=== PATIENT | male | born 1975 | race Caucasian/White ===

== ENCOUNTER 2018-08-31 22:39 | Inpatient (IN) | payer OTHER ==
[~2018-08-31] VITALS: Ht 162.6 cm; Wt 80.3 kg
[2018-08-31 22:58] VITALS: BP 120/80
--- NOTE | 2018-09-01 00:40 | NUR ---
PT TRANSFER FROM [facility].ARRIVED TO UNIT VIA AMBULANCE ACCOMPANIED BY THE SPOUSE.UPON ARRIVAL PT STABLE IN NO ACUTE DISTRESS.CHEST TUBE TO LEFT LATERAL CHEST IN PLACE.HOOKED UPTO TO -20CM SUCTION,DD BLOOD LIKE DRAINAGE.SOME AIR LEAK NOTED.REINFORCED THE DRESSING BUT AIRLEAK STILL PRESENT.PER REPORT FROM [place] THE AIRLEAK WAS PRESENT AND THAT IS THE REASON WHY PT IS GOING TO BE ADMITTED HERE FOR EVALUATION WITH POSSIBLE THORACTOMY WITH DECORTICATION TOMORROW WITH DR RODRIGUEZ.PT ON RA,W/O RESP DISTRESS.ORDERS NOTED.MANAGER BEHAVIORAL NOTIFIED,ROUNDED ON PTS.PAIN MEDS GIVEN PER ORDERS.PT ORIENTED TO RM AND UNIT ACTIVITIES.POC REVIEWED.PT INAGREEMENT WITH POC.PT DENIES ANY CONCERNS AT THIS TIME.WILL CONT TO MONITOR PER POC.PT TO BE NPO.
[2018-09-01 04:00] VITALS: BP 113/79
[2018-09-01 04:23] VITALS: BP 121/78
[2018-09-01 05:18] LABS: HEMATOCRIT 27.5 % (42.0-52.0); HEMOGLOBIN 9.1 gm/dL (14.0-18.0); MCH 27.8 pg (26.0-34.0); MCHC 33.2 g/dL (28.0-37.0); MCV 83.8 fL (80.0-100.0); RBC 3.28 mil/uL (4.50-6.00); RDW 14.5 % (10.5-14.5)
[2018-09-01 05:30] LABS: CALCIUM 9.1 mg/dL (8.5-10.1); CREATININE 0.9 mg/dL (0.7-1.3); MAGNESIUM 2.3 mg/dL (1.8-2.4); POTASSIUM 4.8 mmol/L (3.5-5.1)
[2018-09-01 09:27] LABS: PROTIME 10.1 Seconds (9.3-11.4)
--- NOTE | 2018-09-01 14:32 | NUR ---
ASSUMED CARE AT 0700, SHIFT ASSESSMENT DONE, PATENT HAS BEEN NPO SINCE LAST NIGHT. CHEST TUBE SITE CLEAN, DRY, INTACT. REPORTED PAIN, PRN PAIN MED GIVEN. WAS PICKED UP FOR OR AT 1130, NSR ON TELE. WILL CONTINUE TO ASSIST WITH TRANSFER NEEDED.
--- NOTE | 2018-09-01 14:43 | H ---
[facility] [place] [address] HISTORY AND PHYSICAL Name: ILDA NEGRETE Room #: 210-P ADM IN M.R.#: [id number] Admission: 08/31/18 ������������������ Attend Phys: Efren Mendoza Discharge: ������������������ Date of : 71 Report #: [id number] THIS REPORT FOR: //name// CC: FAM physician/PCP Jacob Phan DATE OF SERVICE: 08/31/2018 ATTENDING PHYSICIAN: Dr. Phan. PRIMARY CARE PHYSICIAN: None. CHIEF COMPLAINT: Empyema. HISTORY OF PRESENT ILLNESS: The patient is a 43-year-old male who was initially admitted at [facility] on 08/21/2018 for shortness of breath and cough. He was febrile with a temperature of 103 with white blood cell count of 21.2 and 15% bands. Chest x-ray showed moderate left effusion with possible loculation. He did meet sepsis and was started on vancomycin and Zosyn. He also had mild acute kidney injury with a creatinine of 1.4. His lactate was 3.4. Over the course of the last week and a half, he has had a chest tube placed for the loculated effusion on 08/22/2018 and subsequently had a left VAT with drainage of multiloculated empyema with lysis of pleural adhesions and drainage of a large clot hemothorax. He had a second chest tube placed with surgery, that chest tube was removed earlier today. He had a followup CT of the chest done on 08/29/2018, which shows [address] with drainage of much of the left apical fluid. There is small residual pleural gas and fluid collections with associated pleural thickening. There is moderate ongoing atelectasis and infiltrate in the left lower lobe and there is much unchanged mediastinal lymphadenopathy. He has been followed by cardiothoracic surgery with Dr. Rios who requested that he be transferred to [facility] for another left thoracotomy with possible decortication in the morning. He arrived in stable condition. His main complaint is left-sided chest pain. This has been pleuritic pain since he had been admitted at [facility]. He has been on multiple pain medications including morphine, fentanyl, Toradol, oxycodone and Percocet. Pain is worse with any movement, cough or deep breathing. He currently rates his pain at 8/10. He did receive some pain medications prior to transfer. His culture from the empyema did grow beta-hemolytic Strep group A. He had been followed by infectious disease and his antibiotics were switched to Rocephin 2 g daily. His blood cultures have been negative. He had originally been treated for pneumonia at the end of June 2018 and had been discharged on oral antibiotics, which he says he had to complete it. He is normally healthy and does not have any underlying medical problems other than osteoarthritis. PAST MEDICAL HISTORY: Osteoarthritis. [facility] [address] [place] [address] HISTORY AND PHYSICAL Name: ILDA NEGRETE Room #: 210-P ADM IN M.R.#: [id number] Admission: 08/31/18 ������������������ Attend Phys: Efren Mendoza Discharge: ������������������ Date of : 71 Report #: [id number] PAST SURGICAL HISTORY: Recent left video-assisted thoracoscopy with drainage of multiloculated empyema and lysis of pleural adhesions and drainage of large hemothorax. MEDICATIONS: Home medications are none. The medications that he had been on at [facility] were reviewed. ALLERGIES: None. SOCIAL HISTORY: The patient is a smoker, smoking 1 pack per day since he was a teenager. Denies any current alcohol use, but did use to drink heavily at least 3-4 times per week. He denies any current drug use, but did use cocaine and marijuana in the past. He has not used anything for 14 years. 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 FAMILY HISTORY: Significant for diabetes and hypertension. REVIEW OF SYSTEMS: Twelve-point review of systems was reviewed with the patient, otherwise negative unless stated in the HPI. PHYSICAL EXAMINATION: GENERAL: The patient is an alert male, in no acute distress. VITAL SIGNS: Temperature 37.1, heart rate 110, respirations 17, blood pressure 120/80, oxygen 96% on room air. HEENT: PERRLA. Sclerae are nonicteric. Oral mucosa is pink and moist. NECK: Supple, no JVD noted. CARDIOVASCULAR: He is tachycardic, but no murmurs, rubs or gallops. RESPIRATORY: Breath sounds are clear in bilateral upper lobes. He is diminished in the left lower lobe. There is a left-sided chest tube in place draining some sanguineous fluid. The chest tube site is clean, dry and intact. ABDOMEN: Soft, nontender, nondistended with positive bowel sounds. VASCULAR: There is 1+ bilateral lower extremity edema. Pedal pulses are 2+. NEUROLOGIC: The patient is alert and oriented x 3. Speech is clear. He is moving all extremities equally. No focal neuro deficits noted. LABORATORY DATA AND DIAGNOSTICS: Blood work done earlier today at [facility] showed a WBC of 14.1, hemoglobin 8.8 and platelets 414. Sodium 133, potassium 4.5, BUN 12, creatinine 0.9, glucose [address] of the chest on 08/29/2018 as above. ASSESSMENT AND PLAN: 1. Left empyema. The patient is sent by Dr. Rios for repeat left-sided thoracotomy with possible decortication. This is scheduled for tomorrow morning. We will keep him n.p.o. after midnight. Continue with pain control. Continue Rocephin daily based on prior cultures. 2. Nicotine, tobacco abuse. The patient has been advised to quit. He did [facility] [address] [place] [address] HISTORY AND PHYSICAL Name: SHAIJAGDISHBLANKAILDA Room #: 210-P [facility] IN M.R.#: [id number] Admission: 08/31/18 ������������������ Attend Phys: Efren Mendoza Discharge: ������������������ Date of : 71 Report #: [id number] agree to a nicotine patch. 3. Recent anemia. This is likely due to acute blood loss from the hemothorax and postoperatively, he did receive a unit of blood and hemoglobin has been stable. Follow labs. 4. Deep venous thrombosis prophylaxis. Heparin has been on hold for surgery. Place on SCDs and resume heparin when okay with surgery. We will continue to follow the patient closely throughout the hospitalization and make changes based on clinical status. ��������������������������������������������� <ELECTRONICALLY SIGNED> ���������������������������������������� By: HUMBERTO Chow ��������������������������������������������� 09/01/18 1443 0147 0225 HUMBERTO Chow /nt
--- NOTE | 2018-09-01 16:13 | NUR ---
Chart reviewed and case discussed with the care team. Unable to met with pt this afternoon due to surgery and transfer to the ICU after. Pt had a thoracotomy. Will follow along should the pt have dc planning needs. He does not have health insurance coverage and a [employer] referral was initiated. He was indep and working prior to admission and lives with his and children. He was transfered from [facility] for CTS. Pt will likely need a abdoul application and medication assistance at pr.
--- NOTE | 2018-09-01 20:02 | NUR ---
1800 - PT ADMITTED TO 244 FROM RECOVERY ROOM /C NURSE AT BEDSIDE - MONITORS APPLIED - ART LINE ZEROED - CHEST TUBES PLACED TO SUCTION - CERTIFIED TRAVEL COUNSELOR PUMP ATTACHED AND PT EDUCATED ON HOW TO USE - VSS - ALBA IN PLACE AND DRAINING - DRESSING AND DAVID PUMP INTACT - BROUGHT TO BEDSIDE TO SEE PT AND INSTRUCTIONS INCLUDING ICU RULES AND CODE GIVEN - QUESTIONS RELATED TO ANSWERED - PT STATES THANK YOU FOR PATIENCE AND ANSWERING QUESTIONS - REPORT GIVEN TO JORDY FONG
[2018-09-01 22:58] VITALS: BP 130/96
[2018-09-01 23:58] VITALS: BP 128/92
[2018-09-02] VITALS (23 sets, daily range): BP systolic 112–151; BP diastolic 65–115
[2018-09-02 05:41] LABS: HEMATOCRIT 26.9 % (42.0-52.0); HEMOGLOBIN 8.8 gm/dL (14.0-18.0); MCH 27.6 pg (26.0-34.0); MCHC 32.8 g/dL (28.0-37.0); MCV 83.9 fL (80.0-100.0); RBC 3.2 mil/uL (4.50-6.00); RDW 14.1 % (10.5-14.5); WBC 17.4 thou/uL (4.0-11.0)
[2018-09-02 06:06] LABS: CALCIUM 8.7 mg/dL (8.5-10.1); CREATININE 0.9 mg/dL (0.7-1.3); PHOSPHORUS 4.2 mg/dL (2.5-4.9); POTASSIUM 4.7 mmol/L (3.5-5.1); TOTAL BILIRUBIN 0.2 mg/dL (<0.1-1.0); TOTAL PROTEIN 8.5 g/dL (6.4-8.2)
--- NOTE | 2018-09-02 08:31 | NUR ---
AOX4. ON 2L NC. NO APPARENT DISTRESS AT REST. VSS. AFEBRILE. [address], OUTPUT NOTED. AIR LEAKS IN BOTH CHAMBERS. MEDICATED FOR PAIN RELIEF. ADEQUATE URINE OUTPUT. NO COMPLAINS PRESENTLY. WILL CONTINUE TO MONITOR.
--- NOTE | 2018-09-02 18:34 | NUR ---
ASSUMED CARE @ 0700 09/02/18, PT ASSESSMENTS AND VSS COMPLETE PER ICU PROTOCOL. PT ALERT AND ORIENTED X 4, PT ABLE TO FOLLOW ALL COMMANDS, MORTGAGE MANAGER MANAGMENT IN PLACE FOR PAIN. PT ST ON THE MONITOR, PT AFEBRILE, ART LINE DC'D PER ORDERS. . PT INITIALY ON 2L OF 02 NOW ON RA, SATS IN THE HIGH 90'S, INCREASED RR WITH PAIN. PT ON A REGULAR DIET, PT TOLERATING PO VERY WELL. ALBA DC'D TODAY. FAMILY AT BED SIDE DURING SHIFT FOR SUPPORT. PLAN OF CARE- CONTINUE TO MANAGE PAIN.
[2018-09-03] VITALS (18 sets, daily range): BP systolic 105–130; BP diastolic 69–90
[2018-09-03 05:48] LABS: HEMATOCRIT 24.2 % (42.0-52.0); HEMOGLOBIN 8.1 gm/dL (14.0-18.0); MCH 28.2 pg (26.0-34.0); MCHC 33.6 g/dL (28.0-37.0); MCV 84.2 fL (80.0-100.0); RBC 2.88 mil/uL (4.50-6.00); RDW 14.5 % (10.5-14.5); WBC 11.6 thou/uL (4.0-11.0)
[2018-09-03 05:58] LABS: CALCIUM 8.4 mg/dL (8.5-10.1); CREATININE 0.9 mg/dL (0.7-1.3); POTASSIUM 4.1 mmol/L (3.5-5.1)
--- NOTE | 2018-09-03 07:00 | NUR ---
No event last night. Pt remains stable in this shift. No changes of cardiac rhythm. BP and Temp are WNL. Pain level is better control per his report. Continue Dilaudid PERMIT REVIEW ASSISTANT for pain control. No s/sx of any complication indicates. Pulmonary toilet in progress. CTs remain inplace. No airleak on CTs#1. Small airleaked present on CTs#2. Drainage is slowing down. Report hand off to on coming RN.
--- NOTE | 2018-09-03 18:15 | NUR ---
ASSUMED CARE @ 0700 09/02/18, PT ASSESSMENTS AND VSS COMPLETE PER ICU PROTOCOL. PT ALERT AND ORIENTED X 4. PT ABLE TO FOLLOW ALL COMMANDS, DELIVERER MERCHANDISE PUMP IN PLACE . PT AFEBRILE, TACHY ON THE MONITOR. CHEST TUBES X4 STILL IN PLACE. PT ON RA SATS FINE. PT ON A REGULAR DIET, ABLE TO TOLERATE MEALS. PT ABLE TO USE URINAL APPROPRIATELY. PT DOWNDRADED TO CCU, REPORT GIVEN TO TG SPENCE, PT TRANSPORTED TO CCU IN A WHEELCHAIR WITHOUT COMPLICATIONS.
--- NOTE | 2018-09-03 18:43 | NUR ---
ASSUMED CARE OF PATIENT AT 1700 TRANSFER FROM ICU. OIL TANKER CAPTAIN PUMP VERIFIED WITH ICU NURSE. PATIENT HAS 4 CHEST TUBES PRESENT IN HIS LEFT CHEST. PATIENT IS QUITE SORE FROM THE MOVE FROM ICU AT HIS LEFT FLANK AND RESTING IN BED. ASSESSMENT COMPLETED. OIL TANKER CAPTAIN PUMP SET UP. FAMILY AND CHILDREN ARE AT THE BEDSIDE. WILL CONTINUE TO MONITOR.
[2018-09-03 21:05] LABS: HIV ANTIBODY Non Reactive (Non Reactive)
[2018-09-04 00:45] VITALS: BP 124/73
--- NOTE | 2018-09-04 03:37 | NUR ---
ASSESSMENT CHARTED. VSS. PT C/O LEFT FLANK PAIN COPY HOLDER AND PRN PAIN MEDS PER EMAR. CHEST TUBES IN PLACE. PT STEADY TO BEDSIDE COMMOD. PT DENIES N/V, DIZZINESS, SOA. PT HOPEFUL TO WORK WITH PT THIS AM. WILL CONTINUE TO MONITOR AND WITH POC.
[2018-09-04 04:28] LABS: HEMATOCRIT 25.3 % (42.0-52.0); HEMOGLOBIN 8.5 gm/dL (14.0-18.0); MCH 28.2 pg (26.0-34.0); MCHC 33.6 g/dL (28.0-37.0); RBC 3.01 mil/uL (4.50-6.00); RDW 14.8 % (10.5-14.5)
[2018-09-04 04:35] LABS: CALCIUM 8.5 mg/dL (8.5-10.1); CREATININE 0.8 mg/dL (0.7-1.3); POTASSIUM 4.1 mmol/L (3.5-5.1)
[2018-09-04 05:36] VITALS: BP 126/90
[2018-09-04 07:12] VITALS: BP 128/89
--- NOTE | 2018-09-04 09:43 | HC ---
[facility] [place] [address] CONSULTATION Name: ILDA NEGRETE Room #: 203-P ADM IN M.R.#: [id number] Admission: 08/31/18 ������������������ Attend Phys: Efren Mendoza Discharge: ������������������ Date of : 71 Report #: [id number] THIS REPORT FOR: //name// CC: FAM physician/PCP Efren Mendoza DATE OF SERVICE: 09/01/2018 INFECTIOUS DISEASE CONSULTATION ATTENDING PHYSICIAN: Dr. Phan. CONSULTATION REQUESTED BY: Dr. Mendoza. REASON FOR CONSULTATION: Left empyema. HISTORY OF PRESENT ILLNESS: A 43-year-old Lebanese man, initially admitted at [facility], diagnosed to have left-sided empyema due to group A Streptococcus. He had a chest tube and transferred to [place] for decortication. Diagnosed to have pneumonia in 06/2018, discharged after 2 days of treatment with recurrence or reinfection later on resulting in severe sepsis, requiring treatment with Zosyn and vancomycin, later on changed to Rocephin. PAST MEDICAL HISTORY: Essentially noncontributory besides episode of pneumonia and empyema. DRUG ALLERGIES: None listed. 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 Smokes cigarettes. MEDICATIONS: He is currently on Rocephin 2 g IV daily, enoxaparin 40 mg at bedtime, subcutaneous docusate, lactobacillus acidophilus, nicotine patch, morphine sulfate p.r.n., oxycodone p.r.n., ketorolac p.r.n., acetaminophen p.r.n., fentanyl p.r.n. REVIEW OF SYSTEMS: Left-sided chest pain, admitted to [place] for decortication today. PHYSICAL EXAMINATION: GENERAL: A well-developed, nontoxic looking man. VITAL SIGNS: Temperature 98.8, pulse 112, respirations 17, BP 121/78. Height 5 feet 4 inches. Weight 184/175, we have 2 choices, one is in bed and another one on standing at bedside scale. HEENMT: Within range. NECK: Supple. LUNGS: Few rhonchi, left base. Left-sided chest tube. [facility] [address] [place] [address] CONSULTATION Name: ILDA NEGRETE Room #: 203-P ADM IN M.R.#: [id number] Admission: 08/31/18 ������������������ Attend Phys: Efren Mendoza Discharge: ������������������ Date of : 71 Report #: [id number] HEART: S1, S2. No gallop. ABDOMEN: Soft, no masses or megaly. GENITALIA AND RECTAL: Deferred. EXTREMITIES: No clubbing or cyanosis. NEUROLOGIC: Grossly within normal limits. LABORATORY DATA: Sodium 136, potassium , BUN 12, creatinine 0.9. WBC 14,000, hemoglobin 9.1, platelets 540,000. Laboratory data at [facility] revealed CT scan with large left chest tube, a small residual left pleural gas and fluid collection with pleural thickening. Cultures revealed group A Streptococcus. ASSESSMENT: 1. Left-sided empyema due to group A Streptococcus. 2. Anemia. SUGGESTIONS: Recommend to proceed with decortication. Continue Rocephin, excellent choice for group A Streptococcus. Obtain HIV serology. Dr. Mendoza, thank you for requesting my suggestions. ��������������������������������������������� <ELECTRONICALLY SIGNED> ���������������������������������������� By: David Thomas MD ��������������������������������������������� 09/04/18 0943 1026 06 David Thomas MD /nt
[2018-09-04 11:51] VITALS: BP 126/84
[2018-09-04 20:30] VITALS: BP 116/74
[2018-09-05 04:54] VITALS: BP 103/40
--- NOTE | 2018-09-05 05:09 | NUR ---
A/O X 4.PAIN PARTIALLY CONTROLLED.MONITOR SHOWS SINUS TACHYCARDIA.VOIDS ADEQUATELY.ENCOURAGED TO USE INCENTIVE SPIROMETER AND IS PULLING 750.CHEST TUBE INTACT AND ON WATER SEAL.WILL MONITOR AND CONTINUE POC.
[2018-09-05 07:58] VITALS: BP 126/82
[2018-09-05 11:33] VITALS: BP 111/73
--- NOTE | 2018-09-05 12:45 | NUR ---
ASSUMED CARE AT SHIFT CHANGE, ALERT AND ORIENTED X4. ST AND VSS. CT X2 TO LT SIDE CHEST INPLACE, AND DRAINING SMALL AMOUNT S&S DRAINAGE. PAIN UNDER CONTROL WITH PAIN MEDS, AND PATIENT IS VERBALIZED PAIN MANAGEMNET REGIMEN. PROGRESSING TOWARDS GOALS AND WILL CONTINUE WITH POC.
--- NOTE | 2018-09-05 15:12 | NUR ---
FAXED FACE SHEET TO [employer] TO HELP WITH MEDICAID APPLICATION.
--- NOTE | 2018-09-05 15:47 | O ---
[facility] [place] [address] [place] [address] OPERATIVE REPORT Name: SHAI ILDA CARUSO Room #: 203-P ADM IN M.R.#: [id number] Admission: 08/31/18 ������������������ Attend Phys: Efren Mendoza Discharge: ������������������ Date of : 71 Report #: [id number] THIS REPORT FOR: //name// CC: NANCI physician/PCP Efren Mendoza ____ ____ DATE OF SERVICE: 09/01/2018 PREOPERATIVE DIAGNOSIS: Empyema, left chest. POSTOPERATIVE DIAGNOSIS: Empyema, left chest. PROCEDURE: Bronchoscopy, left thoracotomy with decortication. SURGEON: Michael Rios M.D. PACK ROOM OPERATOR: GAGANDEEP Trotter. ANESTHESIA: General. INDICATIONS: The patient is a 43-year-old transferred over from [facility] approximately [address] Bryant had performed a video-assisted thoracoscopy for empyema and Dr. Bryant found a combination of blood and pleural collection blood, possibly related to TPA administration and the pleural collection as a parapneumonic empyema. In the postoperative period, the patient had persistent air leak. He also had what appeared to be persistently rind on the CT scan and after we removed one chest tube, there was persistent air leak. It was uncomfortable with leaving the patient in that situation and thought that if we could do a thoracotomy and alleviate any constricting pleural process that it would ultimately maximize the patient's vital capacity and also improves his response to the infection. FINDINGS AND TECHNIQUE: After general anesthesia was established, flexible diagnostic bronchoscopy was performed. No specific endobronchial lesions were noted. There were some thick white secretions from the left lower lobe, but no endobronchial process. A double lumen endotracheal tube was placed and its position was ascertained under bronchoscopic guidance. The patient was positioned with left side up. Exposure was obtained through a left posterolateral thoracotomy. Chest was entered through an available interspace. We found less pleural process than expected and found much more pulmonary involvement and anticipated to take in particular, beneath the visceral pleura. [facility] [place] [address] [place] [address] OPERATIVE REPORT Name: ILDA SPEARS Room #: 203-P ADM IN M.R.#: [id number] Admission: 08/31/18 ������������������ Attend Phys: Efren Mendoza Discharge: ������������������ Date of : 71 Report #: [id number] The left lower lobe appeared very hemorrhagic. The left lower lobe was plastered to the diaphragm, but there was not much of a subpulmonic process. There were some areas of loculated pus that were likely to be small abscesses, one up at the apex of the chest and one in the fissure and these were opened and drained. The rest of the lung was decorticated to the best of our ability, but it must be said that there was not much pleural process to be seen apart from the intense inflammation and underlying hemorrhagic necrosis of some of the lungs. When I felt that we had dissected all areas of the lung and the chest was irrigated with copious amounts of warm saline and then, 4 chest tubes were placed to drain the anterior, lateral, posterior, and inferior pleural surfaces. The chest was then closed in the usual fashion. The patient was taken to the recovery area in good condition having tolerated the procedure well. All counts reported as correct. ��������������������������������������������� <ELECTRONICALLY SIGNED> ���������������������������������������� By: Michael Rios MD ��������������������������������������������� 09/05/18 1547 0837 1041 Michael Rios MD /nt
[2018-09-05 16:25] VITALS: BP 105/65
--- NOTE | 2018-09-05 18:11 | NUR ---
ASSUMED CARE AT SHIFT CHANGE, ALERT AND ORIENTED X4. ST ON THE MONITOR, VSS AND FEBRILE, LT SIDE/CT INSERTION SITE PAIN PATIENT REPORTED , AND MEDICATED INDICATED. PATIENT UP WALKING X3 TODAY AND TOLERATED WELL. PROGRESSING TOWARDS GOALS AND WILL CONTINUTO MONITOR.
[2018-09-05 21:05] VITALS: BP 149/66
[2018-09-06 04:45] VITALS: BP 103/71
--- NOTE | 2018-09-06 05:51 | NUR ---
A/O X 4.PAIN IS FAIRLY CONTROLLED.DR VILLASEÑOR IS HERE LAST NIGHT.PLAN IS TO REMOVE THE CHEST TUBE TODAY.WILL MONITOR AND CONTINUE PLAN OF CARE.
[2018-09-06 09:51] VITALS: BP 106/70
--- NOTE | 2018-09-06 15:16 | NUR ---
met with patient he has chest tubes pulled. He is eager for home. 6 children and at home ages 3-16, [facility] to meet with patient he has no health insurance. he reports children on [place] med[place]. [facility] following for dc planning.
[2018-09-06 16:00] VITALS: BP 119/76
--- NOTE | 2018-09-06 17:52 | NUR ---
ASSESSMENT DOCUMENTED. S/B DR RODRIGUEZ TEAM 2 OF CHEST TUBES OUT TODAY, AND DRESSING APPLIED. MEDICATED FOR PAIN INDICATED. UP WALKED THE HALLWAYS X2 WITH SB ASSIST. PROGRSSING TOWARDS GOAL AND WILL CONTINUE WITH POC.
[2018-09-06 20:00] VITALS: BP 113/91
[2018-09-07 04:30] VITALS: BP 110/78
[2018-09-07 07:10] VITALS: BP 107/76
--- NOTE | 2018-09-07 07:20 | NUR ---
ASSESSMENTS CHARTED. PATIENT RESTING IN BED DURING SHIFT. SR/ST ON TELEMETRY, [address] TO ONE [facility], NO OUTPUT. C/O PAIN EVERY 4 HOURS AT CHEST TUBE SITE AND INCISION SITE. GETS UP WITH WALKER FOR ATRIUM. PLAN IS FOR CHEST TUBES TO COME OUT TODAY.
[2018-09-07] MEDS ORDERED: FERREX 150 PLU1 EAC1 PO (08:41)
[2018-09-07] MEDS ORDERED: HYDROCODON-ACE1 EAC7 PO (08:41)
[2018-09-07] MEDS ORDERED: KEFLEX500 M1 PO (08:42)
--- NOTE | 2018-09-07 09:54 | NUR ---
Assess for length of stay. Admit with empyema, s/p thoracotomy with decortication. Pt ambulating, eating well. Weights 175-177 lb. Low nutrition risk
[2018-09-07 15:05] VITALS: BP 112/79
--- NOTE | 2018-09-07 18:40 | NUR ---
ASSUMED CARE OF PATIENT AT 0700. ASSESSMENTS CHARTED. PATIENT LEFT SIDED CHEST TUBE REMOVED WITH CXR BEFORE AND AFTER. PATIENT STATES HIS PAIN IS GREATLY RELIEVED AFTER THE REMOVAL OF THE CHEST TUBE. PATIENT AMBULATED THE HALLS WITH PT. PATIENT REQUESTING LOWER DOSAGE OF PAIN MEDICATION. PATIENT IS ANXIOUS TO DISCHARGE TOMORROW. PATIENT TO CONTINUE WITH POC.
[2018-09-07 19:42] VITALS: BP 112/79
[2018-09-08 04:10] VITALS: BP 121/85
--- NOTE | 2018-09-08 07:29 | NUR ---
ASSESSMENTS CHARTED. PATIENT US UP WITH STANDBY ASSIST TO ROOM. STILL C/O LEFT FLANK PAIN. DOSED CHARTED. WARM PACK USED. PLAN OF CARE IS TO FOLLOW UP WITH DR. STEWARD FOR POSSIBLE CANCER. PATIENT PLANNING TO GO HOME TODAY.
[2018-09-08 07:35] VITALS: BP 108/83
[2018-09-08 11:25] VITALS: BP 109/77
[2018-09-08 12:23] VITALS: BP 109/77
--- NOTE | 2018-09-08 13:07 | NUR ---
BEING DISCHARGED TO HOME TODAY. FAMILY AT BEDSIDE. HYDROCODONE ORDERED. CM TO HELP WITH ARRANGEMENTS. WILL CONTINUE TO FOLLOW.
[2018-09-08 14:53] VITALS: BP 109/77
--- NOTE | 2018-09-08 15:22 | NUR ---
Pt dcing home today with outpt cts f/u appt on September 20. Pt provided [employer] [facility] clinic info for [facility]. Antibiotic and pain med vouchered per cm in the [facility] outpt pharmacy. Total is approx $20.79. [employer] to followup with a abdoul application for this stay. No other needs indicated at this time. Pt is up ad andrew and feels steady on his feet. He is working with his employer regarding sick leave for a few weeks.
--- NOTE | 2018-09-09 13:10 | HC ---
[facility] [place] [address] CONSULTATION Name: SHAI CARUSOILDA Room #: 203-P [facility] IN M.R.#: [id number] Admission: 08/31/18 ������������������ Attend Phys: Efren Mendoza Discharge: 09/08/18 ������������������ Date of : 71 Report #: [id number] THIS REPORT FOR: //name// CC: GIGI CHRISTINE physician/PCP BRYON Mendoza REASON FOR CONSULTATION: Questionable/possible malignant cells seen on recent pleural tissue from VATS procedure. HISTORY OF PRESENT ILLNESS: The patient is a very pleasant 43-year-old male, originally from [place], who has been in the [place] for 20+ years, who per the chart and history, sound like he went to [facility] with a fever and cough at about 07/17/2018. Our understanding is that he was diagnosed with pneumonia and began on oral antibiotics. It is not clear at this time whether he was admitted or just seen in the ER. He then was seen at [facility] again on 08/21/2018 with fever to 103 and evidently saw left pleural effusion on chest x-ray and met sepsis criteria. Note that on admission at [facility] on 08/21, his hemoglobin was 14.8, white count 22,000 and platelet count of 221,000. He did then have a CT chest. At that time, the chest tube was placed and TPA was administered. I am still trying to understand whether he might have had a CT scan done before the chest tube and the TPA or if it was more of a diagnostic CAT scan. Dr. Rios is checking into that. They then had a CAT scan on 08/24 that showed decreased effusion or loculation, and I believe then they thought he was not doing well, not sure what. He then had a VATS procedure on 08/26/2018 at [facility]. The tissue from that was benign. He then had another CAT scan, I believe on 08/29. Dr. Rios had seen the patient, did not think he was progressing. He brought him over to [facility] on the . He then underwent a VAT procedure here and decortication of the left lung at [facility]. Reports on the tissue is worrisome for malignancy. The patient has been told that he has worrisome cells. I did not use the word cancer or malignancy. The patient previously said his weight had been stable. He has not had any unusual headaches, swallowing difficulties, GERD type symptoms, diarrhea, constipation, swollen glands, skin rash, or feeling ill before this pneumonia. He has a history of osteoarthritis. SOCIAL HISTORY: He is originally from [place], has been [place] the country about 20[place] years. 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 He is . He was smoking up until recent about a pack per day. He had drank heavily in the past, but none recently. In the distant past, reportedly may have used cocaine and marijuana, but I believe that is over a decade ago. He is and has six children. FAMILY HISTORY: He thinks his mother may have had diabetes. He thinks his sister may have had some type of female cancer, it sounds like he is not sure [facility] [address] [address] CONSULTATION Name: ILDA SPEARS Room #: 203-P DIS IN M.R.#: [id number] Admission: 08/31/18 ������������������ Attend Phys: Efren Mendoza Discharge: 09/08/18 ������������������ Date of : 71 Report #: [id number] whether it was uterine or cervical or ovarian. His children are healthy. CURRENT MEDICATIONS: At this time include Senokot 1 b.i.d., diltiazem 30 q.8 scheduled, melatonin 1 mg at bedtime, iron 150 mg daily, MiraLax 17 grams daily, ceftriaxone 2 grams daily, mupirocin 1 gram b.i.d. nasally, famotidine 20 mg b.i.d. IV, Lovenox 40 mg at bedtime subQ, ipratropium and albuterol respiratory therapy q.4, albuterol q.4. Hydrocodone p.r.n., ondansetron p.r.n., hydromorphone MEDIA BUYER, lactobacillus cap b.i.d., nicotine patch 21 mg, morphine and oxycodone p.r.n., Tylenol p.r.n. PHYSICAL EXAMINATION: VITAL SIGNS: Height is 5 feet 4 inches, 162.6 cm. Weight is 177 pounds or 80.3 kilograms. Recent blood pressure is 107/76, O2 sat on room air 93%, respirations 20, pulse 104 and temperature afebrile at 97.8. MOOD: The patient is pleasant and conversant. NEUROLOGIC: Speech and thought pattern are normal. Moving all extremities. HEENT: Face is symmetrical. LUNGS: Have some slight decreased sounds on the left base. No wheezes, rhonchi. Chest tube still in place in his chest. HEART: Appears regular rate. LYMPHATICS: No enlarged lymph nodes in the supraclavicular, cervical, axillary or inguinal region. ABDOMEN: Slightly obese, nontender. No masses. EXTREMITIES: Without clubbing or cyanosis. SKIN: Does have several tattoos, but no lesions. No bleeding noted. LABORATORY DATA: Here, BUN of 13, creatinine of 0.8. Liver functions normal. Albumin 2, total protein 8.5. INR at admission 1. White count 10, hemoglobin 8.5, MCV 84, platelets 604. HIV negative. ASSESSMENT AND PLAN: 1. Question of abnormal cells on a recent VAT procedure. No written report currently available. I will recheck with the path, discuss with them. If this is malignancy, the question will be where it may have come from. It is possible this could be a pleural-based lesion that is obscured with loculation, etc. We will probably consider a baseline CAT scan in about 3-4 weeks. We will need to see if there is other disease, may also consider PET scan. Hopefully, these are reactive cells and not malignant. 2. Anemia. The patient had been normal before admission. I agree with iron replacement. 3. Empyema with group A strep, status post decortication. Ceftriaxone antibiotics per others. 4. Tobaccoism. Encouraged continued cessation. [address] [address] CONSULTATION Name: SHAI CARUSOILDA Room #: 203-P DIS IN M.R.#: [id number] Admission: 08/31/18 ������������������ Attend Phys: Efren Mendoza Discharge: 09/08/18 ������������������ Date of : 71 Report #: [id number] 5. Reactive airway and possible early chronic obstructive pulmonary disease. Agree with aerosol treatments. We will follow. ��������������������������������������������� <ELECTRONICALLY SIGNED> ���������������������������������������� By: Kevin Vergara MD ��������������������������������������������� 09/09/18 1310 [id number] Kevin Vergara MD /nt
--- NOTE | 2018-09-11 16:05 | PATH ---
[facility] [place] [address] PATHOLOGY RPT PROCEDURE Name: SHAI CARUSOILDA Room #: 203-P DIS IN M.R.#: [id number] ������������������ Admission: 08/31/18 ������������������ Date of : 71 Discharge: 09/08/18 Report #: [id number] Path Case #: [id number] [facility] Accession Number: [id number] . 01 Material submitted: . pleura - LEFT PLEURAL PEEL. Modifiers: left . 01 Clinical history: . Left lung empyema . 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 - Underlying lung tissue with organizing pneumonia and reactive epithelial atypia. - Negative for malignnacy. 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 . . Special studies report received from [address] [place] [address], on case [id number], labeled with their number [id number], dated 09/11/2018. . PATH Pathology Consultation . Pathology Consult . Interpretation . FINAL DIAGNOSIS Left pleural peel ([id number]; 09/01/2018): Severe organizing fibrinous pleuritis. Underlying lung tissue reveals organizing pneumonia, reactive epithelial changes, and marked inflammatory infiltrates. Negative for malignancy. . 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 He recently presented with shortness of breath and cough. He was febrile up to 103 degrees and had increased white cell count up to 21.2 k with 50% bands. Imaging study demonstrated extensive lower lobe consolidation and pneumonia. After a VATS procedure at another hospital, he had persistent air leak. Subsequently, he underwent decortication. Microbiologic culture study grew beta-hemolytic strep group A. I had the pleasure of reviewing this case because of my interest in pulmonary pathology. . [facility] [address] [place] [address] PATHOLOGY RPT PROCEDURE Name: SHAI CARUSOILDA Room #: 203-P DIS IN M.R.#: [id number] ������������������ Admission: 08/31/18 ������������������ Date of : 71 Discharge: 09/08/18 Report #: [id number] Path Case #: [id number] Sections of the pleural decortication specimen demonstrate exuberant fibrinous exudates, inflammatory infiltrates mainly composed of neutrophils, and reactive fibrous changes. These findings are consistent with clinical impression of empyema. The underlying lung tissue demonstrates organizing pneumonia and marked acute and chronic inflammatory infiltrates. There are some reactive atypia in the epithelial cells, but I do not see any abnormal epithelial growth. Rather, it seems that all epithelial cells main well organized growth pattern, well highlighted by your TTF-1, Marcell-EP4, and napsin A stains without any infiltrative or tumefactive features. Desmin stain demonstrates blood vessels and some reactive mesothelial cells. Calretinin and WT1 also demonstrate reactive mesothelial cells as well as vessels by WT1 (cytoplasmic). Again, I do not see any evidence of mesothelial or epithelial malignancy in this specimen. . If you have any questions, please do not hesitate to reach me at [phone]. . A comprehensive review of records that included clinical notes was performed to assist in the diagnostic assessment of the case. . . Material Received A. [id number]: Left pleural 9 stained slides . Report electronically signed by Dasia Barth M.D. [id number] . I verify that I have examined all relevant slides/materials for the specimen(s) and rendered or confirmed the diagnosis. . . . A complete copy of the report is on file. . Professional services performed by [address] [address]. [facility] [address] [facility], [address] [address]. . (AMJ 09/11/2018) QMS/09/11/2018 . 02 Comment: An exuberant glandular proliferation is identified associated with the inflammation. Properly controlled immunohistochemical stains are performed [address] [address] PATHOLOGY RPT PROCEDURE Name: ILDA SPEARS Room #: 203-P DIS IN M.R.#: [id number] ������������������ Admission: 08/31/18 ������������������ Date of : 71 Discharge: 09/08/18 Report #: [id number] Path Case #: [id number] on block A1. The epithelioid proliferation shows strong nuclear reactivity with TTF-1 and membranous reactivity with BerEP4. Calretinin and desmin are non-reactive within the epithelioid proliferation. Napsin A shows reactivity within the glandular structures, WT-1 is nonreactive within these foci. . This case was sent to [facility] for an expert consultation. The case was discussed with Dr. Rios at 11:27 AM on 09/06/18 and again in the evening of 09/11/18. 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 02 Electronically signed: . Natasha Renee MD, Pathologist NPI- [id number] . 01 Gross description: . The specimen is received in formalin, labeled "Ilda Shai Caruso, left pleural peel". Received are multiple segments of pink-hurley to pink-billy glistening pleural tissue admixed with possible exudate measuring 7.6 x 5.9 x 2.2 cm in aggregate dimensions. The specimen is submitted representatively in cassette A1. (CAA; 09/04/2018) . After initial microscopic examination, additional home office representative sections are submitted in cassettes A2 and A3. (CAA; 09/06/2018) QAC/QAC . 02 Pathologist provided ICD-10: J84.116, J86.9 . 02 CPT . 062388, Q38062, C62915 Specimen Comment: A courtesy copy of this report has been sent to Specimen Comment: [phone], , . Specimen Comment: Report sent to ,DR MORRIS / DR MARTINEZ Performed at: [address], [place], [place] [id number] MD Jitendra Coreas MD Phone: [phone] Performed at: [address] [id number] MD Natasha Renee MD Phone: [phone]
== END 2018-09-08 17:28 | disposition home or self-care (01) | DRG 165 ==
LOC: 2N 22:39 → ICU 09-01 14:55 → PRE 09-01 15:52 → 2N 09-03 16:51 → ENTRNSPT 09-08 17:21 → 2N 09-08 17:28
PROVIDERS: Anesthesiology; Internal Medicine Infectious Disease; Nurse Practitioner Acute Care; Nurse Practitioner Family; Physician Assistant; Surgery Vascular Surgery; ADMIT Hospitalist
DX: J86.9 Pyothorax without fistula (principal); D50.9 Iron deficiency anemia, unspecified; K59.00 Constipation, unspecified; B95.0 Streptococcus, group A, as the cause of diseases classified elsewhere; M19.90 Unspecified osteoarthritis, unspecified site; F17.210 Nicotine dependence, cigarettes, uncomplicated; Z71.6 Tobacco abuse counseling; Z79.899 Other long term (current) drug therapy; Z83.3 Family history of diabetes mellitus; Z82.49 Family history of ischemic heart disease and other diseases of the circulatory system
CPT/HCPCS: 10081; 10203; 47405; 50010; 50101; 50386; 50417; 50455; 50497; 50607; 50649; 51301; 56525; 56526; 56527; 56528; 57116; 62110; 62900; 70005